=== PATIENT | male | born 1950 | race Caucasian/White ===

== ENCOUNTER 2017-11-20 09:05 | Emergency (ER) | payer MEDICARE ==
[~2017-11-20 09:05] MED LIST: ASPI-1197 PO; BACL10TA PO; BUDE10.2 IH; CYAN10007 IJ; FOLI1TAB15 PO; PYRI100T2 PO; SIMV10TA6 PO; TIOT4MIS5 IH
== END 2017-11-20 10:02 | disposition home or self-care (01) ==
LOC: EDH 09:05
DX: S63.698A Other sprain of other finger, initial encounter (principal); S50.01XA Contusion of right elbow, initial encounter; J18.9 Pneumonia, unspecified organism; G12.21 Amyotrophic lateral sclerosis; Z98.890 Other specified postprocedural states; W18.39XA Other fall on same level, initial encounter; Y93.01 Activity, walking, marching and hiking; Y92.89 Other specified places as the place of occurrence of the external cause; Y99.8 Other external cause status
CPT/HCPCS: 73080; 73140

== ENCOUNTER 2018-01-05 09:16 | Inpatient (IN) | payer MEDICARE ==
[~2018-01-05] VITALS: Ht 182.9 cm; Wt 123.7 kg
[2018-01-05] MEDS ORDERED: CEFTRIAXONE SODIUM 2 GM VIAL ONE (09:34)
[2018-01-05] MEDS ORDERED: ACETAMINOPHEN EXTRA STRENGTH 500 MG TABLET ONE (09:35)
[2018-01-05 09:50] LABS: BASOPHILS % (AUTO) 0.2 % (0.0-5.0); EOSINOPHILS % (AUTO) 0.1 % (0.0-8.0); HEMATOCRIT 42.5 % (42-54); LYMPHOCYTES % (AUTO) 2.7 % (21.0-51.0); MEAN CORPUSCULAR HEMOGLOBIN 28.9 pg (27.0-33.0); MEAN CORPUSCULAR HGB CONC 33.2 g/dL (32.0-36.0); MEAN CORPUSCULAR VOLUME 87.2 fL (79-99); MONOCYTES % (AUTO) 5.4 % (3.0-13.0); NEUTROPHILS % (AUTO) 91.6 % (40.0-77.0); PLATELET COUNT (AUTO) 146 K/uL (130-400); RED BLOOD CELL COUNT(AUTO) 4.88 MIL/uL (4.50-6.20); RED CELL DISTRIBUTION WIDTH 15.6 % (11.0-15.5); WHITE BLOOD COUNT (AUTO) 13.6 K/uL (4.8-10.8)
[2018-01-05 10:03] LABS: INR 0.99 (0.85-1.15); PARTIAL THROMBOPLASTIN TIME 28.5 SEC (26.3-35.5); PROTHROMBIN TIME 10.4 SEC (9.6-11.6)
[2018-01-05 10:12] LABS: CREATININE 0.7 mg/dL (0.5-1.5); POTASSIUM 3.7 mmol/L (3.5-5.1)
[2018-01-05 10:25] LABS: ALBUMIN 2.9 g/dL (3.5-5.0); BILIRUBIN,TOTAL 0.5 mg/dL (0.2-1.0); CREATINE KINASE MB 1.6 ng/mL (0.5-3.6); TOTAL PROTEIN, SERUM 6.6 g/dL (6.0-8.3)
[2018-01-05] MEDS ORDERED: AZITHROMYCIN 500MG+NS 250ML 250 ML IV ONE (11:54)
[2018-01-05 18:34] LABS: APPEARANCE,URINE SLIGHTLY CLOUDY (CLEAR); BILIRUBIN,URINE Small (NEGATIVE); COLOR,URINE Dark Yellow (YELLOW); GLUCOSE, URINE (UA) Negative (NEGATIVE); KETONES,URINE 15 mg/dL (NEGATIVE); LEUKOCYTE ESTERASE ,URINE Negative (NEGATIVE); NITRATE,URINE Negative (NEGATIVE); OCCULT BLOOD,URINE Negative (NEGATIVE); PROTEIN,URINE Negative (NEGATIVE)
[2018-01-05 18:41] LABS: BACTERIA,URINE Few /HPF (None Seen); MUCUS,URINE Moderate LPF (None Seen); RBC,URINE 0-1 /HPF (0-1); SQUAMOUS EPITHELIAL CELL,UR Rare /HPF (0-2); WBC,URINE 0-1 /HPF (0-1)
[2018-01-05 18:42] LABS: URIC ACID CRYSTALS,URINE Few /LPF (None Seen)
[2018-01-05] MEDS ORDERED: IPRATROPIUM/ALBUTEROL SULFATE 3 ML SOLUTION IH ONE ×2 (18:57→21:40)
[2018-01-05] MEDS: FAMOTIDINE 20MG TAB 20 MG TAB PO SCH (21:30)
[2018-01-05] MEDS: IPRATROPIUM/ALBUTEROL SULFATE 3 ML SOLUTION IH SCH (21:45)
[2018-01-06] MEDS ORDERED: IPRATROPIUM/ALBUTEROL SULFATE 3 ML SOLUTION IH ONE ×3 (01:42→10:14)
[2018-01-06] MEDS: IPRATROPIUM/ALBUTEROL SULFATE 3 ML SOLUTION IH SCH ×6 (01:47→22:11)
[2018-01-06 06:10] LABS: BASOPHILS % (AUTO) 0.2 % (0.0-5.0); EOSINOPHILS % (AUTO) 1.3 % (0.0-8.0); HEMATOCRIT 38.3 % (42-54); LYMPHOCYTES % (AUTO) 11.4 % (21.0-51.0); MEAN CORPUSCULAR HEMOGLOBIN 30.1 pg (27.0-33.0); MEAN CORPUSCULAR HGB CONC 34.1 g/dL (32.0-36.0); MEAN CORPUSCULAR VOLUME 88.3 fL (79-99); MONOCYTES % (AUTO) 8.1 % (3.0-13.0); PLATELET COUNT (AUTO) 135 K/uL (130-400); RED BLOOD CELL COUNT(AUTO) 4.34 MIL/uL (4.50-6.20); RED CELL DISTRIBUTION WIDTH 15.1 % (11.0-15.5)
[2018-01-06 06:21] LABS: CREATININE 0.7 mg/dL (0.5-1.5); POTASSIUM 3.5 mmol/L (3.5-5.1)
[2018-01-06] MEDS: CEFTRIAXONE SODIUM 1 GM IVP SCH (09:00)
[2018-01-06] MEDS ORDERED: AZITHROMYCIN 500MG+NS 250ML 250 ML IV SCH (09:00)
[2018-01-06] MEDS: ENOXAPARIN SODIUM 40 MG/0.4 ML SYRINGE SQ SCH (09:00)
[2018-01-06] MEDS ORDERED: ENOXAPARIN SODIUM 40 MG/0.4 ML SYRINGE SQ ONE (09:07)
[2018-01-06] MEDS ORDERED: FAMOTIDINE 20MG TAB 20 MG TAB ONE (09:08)
[2018-01-06] MEDS ORDERED: SODIUM CHLORIDE 0.9% 50 ML IV ONE (09:08)
[2018-01-06] MEDS ORDERED: CEFTRIAXONE SODIUM 1 GM ONE (09:08)
[2018-01-06] MEDS ORDERED: AZITHROMYCIN 500MG+NS 250ML 250 ML IV ONE (10:01)
[2018-01-06] MEDS: AZITHROMYCIN 500MG+NS 250ML 250 ML IV SCH (11:00)
[2018-01-06 12:17] VITALS: BP 116/60
[2018-01-06] MEDS ORDERED: FLUO20CA30 PO (12:21)
[2018-01-06 17:04] VITALS: BP 119/53
[2018-01-06 20:00] VITALS: BP 133/71
[2018-01-06] MEDS: FAMOTIDINE 20MG TAB 20 MG TAB PO SCH (21:30)
[2018-01-07] VITALS (7 sets, daily range): BP systolic 119–142; BP diastolic 55–78
[2018-01-07] MEDS: IPRATROPIUM/ALBUTEROL SULFATE 3 ML SOLUTION IH SCH ×6 (02:41→22:26)
[2018-01-07 05:38] LABS: MEAN CORPUSCULAR HEMOGLOBIN 29.8 pg (27.0-33.0); MEAN CORPUSCULAR HGB CONC 33.9 g/dL (32.0-36.0); PLATELET COUNT (AUTO) 154 K/uL (130-400); RED BLOOD CELL COUNT(AUTO) 4.21 MIL/uL (4.50-6.20); RED CELL DISTRIBUTION WIDTH 15.2 % (11.0-15.5); WHITE BLOOD COUNT (AUTO) 6.6 K/uL (4.8-10.8)
[2018-01-07 05:49] LABS: CREATININE 0.7 mg/dL (0.5-1.5); MAGNESIUM 1.7 mg/dL (1.80-2.40); POTASSIUM 3.8 mmol/L (3.5-5.1)
[2018-01-07] MEDS ORDERED: MAGNESIUM 2GM PREMIX 50ML 50 ML IV SCH (09:15)
[2018-01-07] MEDS: CEFTRIAXONE SODIUM 1 GM IVP SCH (10:50)
[2018-01-07] MEDS: AZITHROMYCIN 500MG+NS 250ML 250 ML IV SCH (10:50)
[2018-01-07] MEDS: ENOXAPARIN SODIUM 40 MG/0.4 ML SYRINGE SQ SCH (10:50)
[2018-01-07] MEDS: IPRATROPIUM 0.5 MG/2.5 ML INH IH SCH ×3 (11:04→23:34)
[2018-01-07] MEDS: ALBUTEROL SULFATE 0.083% 2.5 MG/3 ML INH IH SCH ×3 (11:04→23:34)
[2018-01-07] MEDS: BACLOFEN 10 MG TABLET PO SCH ×2 (12:03→20:14)
[2018-01-07] MEDS: BUDESONIDE 0.5 MG/2 ML INH IH SCH (19:38)
[2018-01-07] MEDS: FAMOTIDINE 20MG TAB 20 MG TAB PO SCH (20:00)
[2018-01-07] MEDS: FOLIC ACID 1 MG TABLET PO SCH (20:14)
[2018-01-07] MEDS ORDERED: BACLOFEN 10 MG TABLET PO SCH (21:00)
[2018-01-07] MEDS ORDERED: ATORVASTATIN CALCIUM 10 MG TABLET PO SCH (21:00)
[2018-01-08 04:00] VITALS: BP 144/83
[2018-01-08 05:47] LABS: CREATININE 0.8 mg/dL (0.5-1.5)
[2018-01-08] MEDS: BUDESONIDE 0.5 MG/2 ML INH IH SCH ×2 (05:50→18:00)
[2018-01-08] MEDS: IPRATROPIUM 0.5 MG/2.5 ML INH IH SCH ×3 (05:50→18:00)
[2018-01-08] MEDS: ALBUTEROL SULFATE 0.083% 2.5 MG/3 ML INH IH SCH ×3 (05:50→18:00)
[2018-01-08 07:55] VITALS: BP 143/84
[2018-01-08] MEDS: FOLIC ACID 1 MG TABLET PO SCH (08:50)
[2018-01-08] MEDS: BACLOFEN 10 MG TABLET PO SCH (08:51)
[2018-01-08] MEDS: ENOXAPARIN SODIUM 40 MG/0.4 ML SYRINGE SQ SCH (08:51)
[2018-01-08] MEDS ORDERED: FLUOXETINE HCL 20 MG CAPSULE PO SCH (09:00)
[2018-01-08] MEDS ORDERED: ASPIRIN 81MG TAB.CHEW PO SCH (09:00)
[2018-01-08] MEDS ORDERED: LACTULOSE 20 GM/30 ML UDCUP PO PRN (09:00)
[2018-01-08 11:31] VITALS: BP 107/66
[2018-01-08] MEDS: AZITHROMYCIN 500MG+NS 250ML 250 ML IV SCH (12:22)
[2018-01-08] MEDS: CEFTRIAXONE SODIUM 1 GM IVP SCH (12:22)
[2018-01-08] MEDS ORDERED: AZITHROMYCIN 250 MG TABLET PO SCH (13:45)
[2018-01-08] MEDS ORDERED: AMOXICILLIN/POTASSIUM CLAV 875-125 TABLET PO SCH (13:45)
[2018-01-08] MEDS ORDERED: AMOX-429 PO (13:48)
[2018-01-08] MEDS ORDERED: ALBU8.5H8 IH (13:48)
[2018-01-08] MEDS ORDERED: AZIT500T PO (13:48)
[2018-01-08 16:33] VITALS: BP 151/96
== END 2018-01-08 18:35 | disposition home or self-care (01) | DRG 177 ==
LOC: EDH 09:16 → EDHIP 11:50 → 4BH 01-06 11:26
PROVIDERS: ADMIT Internal Medicine Nephrology; ATTEND Internal Medicine Nephrology
DX: J69.0 Pneumonitis due to inhalation of food and vomit (principal); J96.01 Acute respiratory failure with hypoxia; G12.21 Amyotrophic lateral sclerosis; J44.0 Chronic obstructive pulmonary disease with (acute) lower respiratory infection; E66.01 Morbid (severe) obesity due to excess calories; Z53.29 Procedure and treatment not carried out because of patient's decision for other reasons; G47.33 Obstructive sleep apnea (adult) (pediatric); Z85.118 Personal history of other malignant neoplasm of bronchus and lung; Z87.891 Personal history of nicotine dependence; Z95.5 Presence of coronary angioplasty implant and graft; Z98.2 Presence of cerebrospinal fluid drainage device; Z68.27 Body mass index [BMI] 27.0-27.9, adult; Z88.8 Allergy status to other drugs, medicaments and biological substances; Z91.030 Bee allergy status
CPT/HCPCS: 36415; 70450; 71045; 80048; 80053; 81001; 82550; 82553; 83605; 83735; 84484; 85025; 85027; 85610; 85730; 87040; 87804; 92610; 93005; 94640; 94664; A4218; J0456; J0696; J1650; J3475